=== PATIENT | male | born 1945 | race Caucasian/White ===

== ENCOUNTER 2020-01-08 11:58 | Emergency (ER) | payer MEDICARE ==
[~2020-01-08] VITALS: Ht 180.3 cm; Wt 85.0 kg
[~2020-01-08 11:58] MED LIST: ASPI-630 PO; METO-239 PO; PRAS10TA9 PO; PRED20TA PO; SIMV20OR PO
[2020-01-08] MEDS ORDERED: TETANUS AND DIPHTHERIA TOX/PF 0.5 ML DISP.SYRIN. VAX IM ONE (12:15)
--- NOTE | 2020-01-08 12:18 | PHYS DOC ---
Past Medical History Past Medical History: High Cholesterol, Hypertension Past Surgical History: No Surgical History Smoking Status: Never Smoker Alcohol Use: Rarely General Adult EDM: Chief Complaint: LACERATION/AVULSION HPI: HPI: Patient is a 74-year-old male on blood thinners who presents with a left elbow injury. He states he was mowing yesterday afternoon at about 3:00 he backed into a post opened up a cut on his left elbow. He went to an urgent care and they urged him to come to the emergency department for further evaluation. He has no pain in the area he is unsure when his last tetanus was. [] Review of Systems: Review of Systems: Constitutional: Denies fever or chills. [] Eyes: Denies change in visual acuity. [] HENT: Denies nasal congestion or sore throat. [] Respiratory: Denies cough or shortness of breath. [] Cardiovascular: Denies chest pain or edema. [] GI: Denies abdominal pain, nausea, vomiting, bloody stools or diarrhea. [] : Denies dysuria. [] Musculoskeletal: Denies back pain or joint pain. [] Integument: Per HPI [] Neurologic: Denies headache, focal weakness or sensory changes. [] Endocrine: Denies polyuria or polydipsia. [] Lymphatic: Denies swollen glands. [] Psychiatric: Denies depression or anxiety. [] Heart Score: Risk Factors: Risk Factors: DM, Current or recent (<one month) smoker, HTN, HLP, family history of CAD, obesity. Risk Scores: Score 0 - 3: 2.5% MACE over next 6 weeks - Discharge Home Score 4 - 6: 20.3% MACE over next 6 weeks - Admit for Clinical Observation Score 7 - 10: 72.7% MACE over next 6 weeks - Early Invasive Strategies Allergies: Allergies: Allergies Coded Allergies Type Severity Reaction Last Updated Verified Penicillins Allergy Severe Rash 10/14/19 Yes Physical Exam: PE: Constitutional: Well developed, well nourished, no acute distress, non-toxic appearance. [] HENT: Normocephalic, atraumatic, bilateral external ears normal, oropharynx moist, no oral exudates, nose normal. [] Eyes: PERRLA, EOMI, conjunctiva normal, no discharge. [] Neck: Normal range of motion, no tenderness, supple, no stridor. [] Cardiovascular:Heart rate regular rhythm, no murmur [] Lungs & Thorax: Bilateral breath sounds clear to auscultation [] Abdomen: Bowel sounds normal, soft, no tenderness, no masses, no pulsatile masses. [] Skin: There is a large skin tear in the left elbow this is nothing that can be repaired.. [] Back: No tenderness, no CVA tenderness. [] Extremities: No tenderness, no cyanosis, no clubbing, ROM intact, no edema. [] Neurologic: Alert and oriented X 3, normal motor function, normal sensory function, no focal deficits noted. [] Psychologic: Affect normal, judgement normal, mood normal. [] EKG: EKG: [] Radiology/Procedures: Radiology/Procedures: [] Course & Med Decision Making: Course & Med Decision Making Pertinent Labs and Imaging studies reviewed. (See chart for details) [] Dragon Disclaimer: Dragon Disclaimer: This electronic medical record was generated, in whole or in part, using a voice recognition dictation system. Departure Departure Impression: Primary Impression: Skin tear of left elbow without complication Qualified Codes: S51.012A - Laceration without foreign body of left elbow, i nitial encounter Disposition: HOME, SELF-CARE Condition: STABLE Referrals: GETACHEW OCHOA DO (PCP) Patient Instructions: Skin Tear Care Additional Instructions: Return to the emergency department with any new or concerning symptoms AMY MURRAY DO January 08, 2020 12:18
[2020-01-08 12:22] VITALS: BP 199/88
== END 2020-01-08 12:50 | disposition home or self-care (01) ==
LOC: ER 11:58
DX: S51.012A Laceration without foreign body of left elbow, initial encounter (principal); E78.00 Pure hypercholesterolemia, unspecified; I10 Essential (primary) hypertension; Z88.0 Allergy status to penicillin; W26.8XXA Contact with other sharp object(s), not elsewhere classified, initial encounter; Y93.89 Activity, other specified; Y92.89 Other specified places as the place of occurrence of the external cause; Y99.8 Other external cause status
CPT/HCPCS: 90471; 90714; 99283

== ENCOUNTER → 2020-03-30 | Outpatient (CLI) | payer MEDICARE ==
--- NOTE | 2020-03-30 16:48 | CARD ---
MR#: [id number] Date of Study: 03/30/2020 Ordering Physician: LORENZO SHAIKH, Referring Physician: LORENZO SHAIKH, Tech: Skylar Bean APPROVED REPORT EXAM: Two-dimensional and M-mode echocardiogram with Doppler and color Doppler. Other Information Quality : AverageHR: 66bpm INDICATION Non STEMI RISK FACTORS Hypertension Hyperlipidemia 2D DIMENSIONS Left Atrium(2D)4.1 (1.6-4.0cm)IVSd1.2 (0.7-1.1cm) Aortic Root(2D)3.7 (2.0-3.7cm)LVDd5.7 (3.9-5.9cm) LVOT Diameter2.1 (1.8-2.4cm)PWd1.1 (0.7-1.1cm) LVDs3.4 (2.5-4.0cm)FS (%) 39.6 % SV110.5 mlLVEF(%)69.4 (>50%) Aortic Valve AoV Peak Speedy.196.3cm/sAoV VTI39.2cm AO Peak GR.15.4mmHgLVOT Peak Speedy.125.2cm/s LVOT VTI 26.25cmAO Mean GR.9mmHg BRUNA (VMAX)1.30ub3YWX (VTI)2.39cm2 Mitral Valve MV E Xmcljbuq65.9cm/sMV DECEL IFRP911iz MV A Tiywzwyt371.8cm/sMV E Mean Gr.2mmHg MV IGI32kuQ/A Ratio0.9 MVA (PHT)2.76cm2 TDI E/Lateral E'13.9E/Medial E'12.8 Pulmonary Valve PV Peak Neibiurr691.1cm/sPV Peak Grad.4mmHg Tricuspid Valve TR P. Lgtmbogy878vk/sRAP BSFPXJUE7fgKu TR Peak Gr.17veDxOPZX83lwCe LEFT VENTRICLE The left ventricle is normal size. There is mild concentric left ventricular hypertrophy. The left ve ntricular systolic function is normal and the ejection fraction is within normal range. The Ejection Fraction is 50-55%. There is normal LV segmental wall motion. Transmitral Doppler flow pattern is Gra de I-abnormal relaxation pattern. RIGHT VENTRICLE The right ventricle is normal size. There is normal right ventricular wall thickness. The right ventr icular systolic function is normal. ATRIA The left atrium size is normal. The right atrium size is normal. The interatrial septum is intact wit h no evidence for an atrial septal defect or patent foramen ovale as noted on 2-D or Doppler imaging. AORTIC VALVE The aortic valve is heavily calcified with restricted leaflet motion. Doppler and Color Flow revealed trace aortic regurgitation. No significant stenosis by doppler evaluation. MG 10 mm Hg. MITRAL VALVE The mitral valve is normal in structure and function. There is no evidence of mitral valve prolapse. There is no mitral valve stenosis. Doppler and Color-flow revealed trace mitral regurgitation. TRICUSPID VALVE The tricuspid valve is normal in structure and function. Doppler and Color Flow revealed trace tricus pid regurgitation with an estimated PAP of 34 mmHg. There is no tricuspid valve stenosis. PULMONIC VALVE The pulmonic valve is not well visualized. Doppler and Color Flow revealed no pulmonic valvular regur gitation. There is no pulmonic valvular stenosis. GREAT VESSELS The aortic root is normal in size. The ascending aorta is Mildly dilated at 3.7 cm The IVC is normal in size and collapses >50% with inspiration. PERICARDIAL EFFUSION There is no evidence of significant pericardial effusion. Critical Notification Critical Value: No <Conclusion> The left ventricular systolic function is normal and the ejection fraction is within normal range. Th e Ejection Fraction is 50-55%. There is normal LV segmental wall motion. The aortic valve is heavily calcified with restricted leaflet motion. No significant stenosis by dopp ler evaluation. MG 10 mm Hg. The ascending aorta is Mildly dilated at 3.7 cm Signed by : Lorenzo Shaikh, Electronically Approved : 03/30/2020 16:47:58
== END | disposition home or self-care (01) ==
LOC: ECHO 13:28
PROVIDERS: ATTEND Internal Medicine Cardiovascular Disease
DX: I35.8 Other nonrheumatic aortic valve disorders (principal); I21.4 Non-ST elevation (NSTEMI) myocardial infarction; I51.7 Cardiomegaly
CPT/HCPCS: 93306

== ENCOUNTER → 2021-08-26 | Outpatient (CLI) | payer MEDICARE ==
--- NOTE | 2021-08-28 12:15 | CARD ---
MR#: [id number] Date of Study: 08/26/2021 Ordering Physician: LORENZO OLIVA, Referring Physician: LORENZO OLIVA, Tech: Maday Nelson [facility] APPROVED REPORT EXAM: Two-dimensional and M-mode echocardiogram with Doppler and color Doppler. Other Information Quality : Technically LimitedHR: 79bpm Rhythm : NSRTechnically limited study due to body habitus. INDICATION Cardiac Disease: CAD RISK FACTORS Hypertension Hyperlipidemia 2D DIMENSIONS RVDd3.3 (2.9-3.5cm)Left Atrium(2D)3.7 (1.6-4.0cm) IVSd1.4 (0.7-1.1cm)LVDd4.7 (3.9-5.9cm) LVOT Diameter2.2 (1.8-2.4cm)PWd1.2 (0.7-1.1cm) LVDs2.5 (2.5-4.0cm)FS (%) 46.8 % SV79.8 mlLVEF(%)78.2 (>50%) Aortic Valve AoV Peak Speedy.231.8cm/sAoV VTI43.6cm AO Peak GR.21.5mmHgLVOT Peak Speedy.136.1cm/s AO Mean GR.9mmHgAVA (VMAX)2.27cm2 Pulmonary Valve PV Peak Fikzgphi639.1cm/s Tricuspid Valve TR P. Sarzgyry081xk/sTR Peak Gr.24mmHg LEFT VENTRICLE The left ventricle is normal size. There is mild concentric left ventricular hypertrophy. The left ve ntricular systolic function is normal and the ejection fraction is within normal range. Estimated eje ction fraction 55%. Septal motion suggestive of conduction defect.The mid to distal inferolateral wal l is moderately hypokinetic. Otherwise grossly normal LV function. Transmitral Doppler flow pattern i s Grade I-abnormal relaxation pattern. RIGHT VENTRICLE The right ventricle is normal size. There is normal right ventricular wall thickness. The right ventr icular systolic function is normal. ATRIA The left atrium size is normal. The right atrium size is normal. The interatrial septum is intact wit h no evidence for an atrial septal defect or patent foramen ovale as noted on 2-D or Doppler imaging. AORTIC VALVE Aortic valve is calcified with decreased leaflet motion. No obvious stenosis noted based on Doppler e valuation. Doppler and Color Flow revealed trace aortic regurgitation. There is no significant aortic valvular stenosis. MITRAL VALVE The mitral valve is normal in structure and function. There is no evidence of mitral valve prolapse. There is no mitral valve stenosis. Doppler and Color-flow revealed mild mitral regurgitation. TRICUSPID VALVE The tricuspid valve is normal in structure and function. Doppler and Color Flow revealed no tricuspid valve regurgitation noted. There is no tricuspid valve stenosis. PULMONIC VALVE Doppler and Color Flow revealed no pulmonic valvular regurgitation. There is no pulmonic valvular adriana nosis. GREAT VESSELS The aortic root is normal in size. The ascending aorta is normal in size. The IVC is normal in size a nd collapses >50% with inspiration. PERICARDIAL EFFUSION There is no evidence of significant pericardial effusion. Critical Notification Critical Value: No <Conclusion> The left ventricular systolic function is normal and the ejection fraction is within normal range. E stimated ejection fraction 55%. Septal motion suggestive of conduction defect.The mid to distal inferolateral wall is moderately hyp okinetic. Otherwise grossly normal LV function. Aortic valve is calcified with decreased leaflet motion. No obvious stenosis noted based on Doppler evaluation. Technically difficult study Signed by : Lorenzo Oliva, Electronically Approved : 08/28/2021 12:14:45
== END ==
LOC: ECHO 14:38
PROVIDERS: ATTEND Internal Medicine Cardiovascular Disease
DX: I08.0 Rheumatic disorders of both mitral and aortic valves (principal); I25.10 Atherosclerotic heart disease of native coronary artery without angina pectoris
CPT/HCPCS: 93306